=== PATIENT | male | born 1955 | race Caucasian/White ===

== ENCOUNTER 2020-03-31 10:25 | Observation (INO) ==
[2020-03-31] MEDS ORDERED: Ondansetron 4 MG/2 ML VIAL IVP ONE (10:42)
[2020-03-31] MEDS ORDERED: 0.9 % Sodium Chloride 1,000 ML IVC ONE (10:42)
[2020-03-31] MEDS ORDERED: Isovue-370 500 ML BOTTLE IVP ONE (10:43)
[2020-03-31 11:08] LABS: Basophils % 0.5 %; Immature Granulocytes % 0.5 % (0-4); Mean Corpuscular HGB Conc 34.2 g/dL (31.6-35.5); Mean Corpuscular Hemoglobin 30.1 pg (28.0-33.3)
[2020-03-31 11:10] LABS: Eosinophils % 0.2 %; Hematocrit 47.6 % (37.5-50.1); Hemoglobin 16.3 g/dL (12.9-16.9); Immature Platelets 21.6 % (1.1-6.1); Lymphocytes # 0.8 K/mcL (0.6-4.6); Lymphocytes % 18.8 %; Mean Platelet Volume 13.8 fL (9.4-12.4); Monocytes # 0.3 K/mcL (0.0-1.3); Monocytes % 7.9 %; Neutrophils # 3.1 K/mcL (1.6-8.9); Red Blood Count 5.41 M/mcL (4.19-5.50); Red Cell Distribution Width 12.4 % (11.5-14.5); Segmented Neutrophils % 72.1 %; White Blood Count 4.3 K/mcL (4.3-11.1)
[2020-03-31 11:27] LABS: Platelet Count 66 K/mcL (140-400)
[2020-03-31 11:32] LABS: Alanine Aminotransferase 77 Units/L (7-52); Albumin 4.2 g/dL (3.5-5.7); Albumin/Globulin Ratio 1.6 (1.1-2.2); Alkaline Phosphatase 145 Units/L (34-104); Aspartate Amino Transferase 72 Units/L (13-39); BUN/Creatinine Ratio 31 (6-26); Bilirubin,Direct 0.5 mg/dL (0.0-0.2); Bilirubin,Indirect 0.7 mg/dL (0.0-1.0); Bilirubin,Total 1.2 mg/dL (0.3-1.0); Blood Urea Nitrogen 24 mg/dL (8-23); Calcium 9.1 mg/dL (8.6-10.3); Carbon Dioxide 23 mEq/L (23-29); Chloride 99 mEq/L (98-107); Globulin 2.6 g/dL (2.4-3.5); Glucose 128 mg/dL (70-105); Lipase 10 Units/L (11-82); Osmolality,Calculated 282 (280-300); Potassium 3.6 mEq/L (3.5-5.1); Sodium 133 mEq/L (136-145); Total Protein 6.8 g/dL (6.4-8.9); Troponin I < 0.03 ng/mL (< 0.04); eGFR For African Americans > 60 (> 60); eGFR For Non-African Americans > 60 (> 60)
[2020-03-31 11:45] LABS: Bacteria,Urine Few per hpf (None-Few); Bilirubin,Urine Negative (Negative); Blood,Urine Small (Negative); Clarity,Urine Clear (Clear); Color,Urine Yellow (Yellow); Glucose,Urine (UA) 300 mg/dL (Normal); Ketones,Urine 40 mg/dL (Negative); Leukocyte Esterase,Urine Negative (Negative); Mucus,Urine Many per lpf (None-Few); Nitrite,Urine Negative (Negative); Protein,Urine 50 mg/dL (Neg-Trace); Specific Gravity,Urine > 1.030 (1.010-1.025); WBC,Urine 0-3 per hpf (0-3)
[2020-03-31] MEDS ORDERED: *HR* Promethazine 25 MG/ML VIAL IVP PRN (14:30)
[2020-03-31] MEDS ORDERED: Ibuprofen 400 MG TABLET PO PRN (14:30)
[2020-03-31] MEDS ORDERED: MOM Conc 10 ML UD.LIQ PO PRN (14:30)
[2020-03-31] MEDS ORDERED: Naloxone 0.4 MG/ML INJ IVP PRN (14:30)
[2020-03-31] MEDS ORDERED: Ondansetron 4 MG/2 ML VIAL IVP PRN (14:30)
[2020-03-31] MEDS ORDERED: Mag Hydrox/Al Hydrox/Simeth 30 ML UDC PO PRN (14:30)
[2020-03-31] MEDS ORDERED: Dextrose Gel 15 GM/37.5 ML TUBE PO PRN ×2 (14:33)
[2020-03-31] MEDS ORDERED: *HR* Dextrose 50 % in Water (Vial) 50 ML VIAL IVP PRN (14:33)
[2020-03-31] MEDS ORDERED: D5% in Water 1,000 ML IVC PRN (14:33)
[2020-03-31 14:41] LABS: Gamma Glutamyl Transpeptidase 131 Units/L (7-64)
[2020-03-31] MEDS: Insulin LISPRO 300 UNITS/3 ML VIAL SQ SCH (16:26)
[2020-03-31] MEDS: lisinopriL 10 MG TABLET PO SCH (16:39)
[2020-03-31] MEDS: *HR* HYDROcodone/Acet 5/325 mg TABLET PO PRN (16:39)
[2020-03-31] MEDS: *HR* Heparin 5,000 UNIT/ML VIAL SQ SCH (16:39)
[2020-03-31] MEDS: 0.9 % Sodium Chloride 1,000 ML IVC SCH (16:40)
[2020-03-31] MEDS ORDERED: Insulin LISPRO 300 UNITS/3 ML VIAL SQ SCH (21:00)
[2020-04-01] MEDS: 0.9 % Sodium Chloride 1,000 ML IVC SCH ×2 (02:51→12:20)
[2020-04-01] MEDS: *HR* Heparin 5,000 UNIT/ML VIAL SQ SCH ×2 (06:04→17:40)
[2020-04-01 06:56] LABS: Basophils % 0.4 %; Eosinophils % 0.4 %; Hematocrit 42.6 % (37.5-50.1); Hemoglobin 14.6 g/dL (12.9-16.9); Immature Granulocytes % 0.2 % (0-4); Immature Platelets 16.6 % (1.1-6.1); Lymphocytes # 0.8 K/mcL (0.6-4.6); Lymphocytes % 17.4 %; Mean Corpuscular HGB Conc 34.3 g/dL (31.6-35.5); Mean Corpuscular Hemoglobin 30.7 pg (28.0-33.3); Mean Corpuscular Volume 89.5 fL (83.0-100.0); Mean Platelet Volume 13.5 fL (9.4-12.4); Monocytes # 0.3 K/mcL (0.0-1.3); Monocytes % 5.7 %; Neutrophils # 3.5 K/mcL (1.6-8.9); Platelet Count 75 K/mcL (140-400); Red Blood Count 4.76 M/mcL (4.19-5.50); Red Cell Distribution Width 12.3 % (11.5-14.5); Segmented Neutrophils % 75.9 %; White Blood Count 4.6 K/mcL (4.3-11.1)
[2020-04-01 07:14] LABS: Chol/HDL Ratio 3.9 (0-4.9); Cholesterol 121 mg/dL (< 200); HDL Cholesterol 31 mg/dL (40-59); LDL Cholesterol,Calculated 64 mg/dL (< 100); Phosphorous 2.6 mg/dL (2.7-4.5); Triglycerides 132 mg/dL (< 150)
[2020-04-01] MEDS: *HR* HYDROcodone/Acet 5/325 mg TABLET PO PRN ×2 (07:50→17:04)
[2020-04-01] MEDS: lisinopriL 10 MG TABLET PO SCH (07:50)
[2020-04-01] MEDS: Insulin LISPRO 300 UNITS/3 ML VIAL SQ SCH ×3 (08:03→16:45)
[2020-04-01 08:18] LABS: Alanine Aminotransferase 84 Units/L (7-52); Albumin 3.6 g/dL (3.5-5.7); Albumin/Globulin Ratio 1.7 (1.1-2.2); Alkaline Phosphatase 139 Units/L (34-104); Aspartate Amino Transferase 81 Units/L (13-39); BUN/Creatinine Ratio 29 (6-26); Bilirubin,Direct 0.6 mg/dL (0.0-0.2); Bilirubin,Indirect 0.8 mg/dL (0.0-1.0); Bilirubin,Total 1.4 mg/dL (0.3-1.0); Blood Urea Nitrogen 19 mg/dL (8-23); Calcium 8.5 mg/dL (8.6-10.3); Carbon Dioxide 22 mEq/L (23-29); Chloride 101 mEq/L (98-107); Globulin 2.1 g/dL (2.4-3.5); Glucose 111 mg/dL (70-105); Osmolality,Calculated 277 (280-300); Potassium 3.8 mEq/L (3.5-5.1); Sodium 132 mEq/L (136-145); Total Protein 5.7 g/dL (6.4-8.9); eGFR For African Americans > 60 (> 60); eGFR For Non-African Americans > 60 (> 60)
[2020-04-01 10:05] LABS: INR 1.1; Prothrombin Time 12.7 Seconds (9.4-12.1)
[2020-04-01 10:19] LABS: Estimated Average Glucose 126 mg/dl
[2020-04-01 10:43] LABS: Lactate Dehydrogenase 307 Units/L (140-271)
[2020-04-01 10:55] LABS: Carcinoembryonic Antigen 2.4 ng/mL (Less than 5.0)
[2020-04-01 11:07] LABS: Hepatitis B Surface Antigen Nonreactive (Nonreactive)
[2020-04-01 11:36] LABS: Hepatitis B Core IgM Nonreactive (Nonreactive); Hepatitis C Virus Antibody Nonreactive (Nonreactive)
[2020-04-01 11:37] LABS: Hepatitis A Antibody IgM Nonreactive (Nonreactive)
[2020-04-01 15:34] VITALS: BP 145/83
[2020-04-02 13:25] LABS: Vitamin B12 618 pg/mL (250-1100)
== END 2020-04-01 17:54 | disposition home or self-care (01) ==
LOC: EMEROOARM 10:25 → 3ANU 10:25 → SUATTDRO 15:00 → 3ANU 15:45
PROVIDERS: ADMIT Internal Medicine; ATTEND Internal Medicine